=== PATIENT | male | born 1935 | race Caucasian/White ===

== ENCOUNTER 2016-10-12 10:37 | Inpatient (IN) | payer OTHER ==
--- NOTE | 2016-10-12 11:16 | EDPHY ---
HPI/HX/ROS/PE/MDM Narrative: CHIEF COMPLAINT:Left wrist injury HISTORY OF PRESENT ILLNESS: The patient is an 81 year old man presenting with acute left wrist injury, sustained two days ago. The patient was trying to lift something that was too heavy. The object slipped out of his hand and torqued his wrist. He took Oxycodone the day of the injury to manage the pain, but had difficulty managing the pain with Oxycodone yesterday. He had his wrist wrapped in an mathieu bandage yesterday. He complains of moderate pain in the volar ulnar and radial aspect of his wrist. It is associated with swelling and erythema, onset yesterday. Denies fever or chills. Patient does have a history of gout usually involving his toe. REVIEW OF SYSTEMS: Aside from elements discussed in the HPI, a comprehensive 10-point review of systems was reviewed and is negative. PAST MEDICAL HISTORY: Mantle cell lymphoma, COPD, gout SOCIAL HISTORY: Current daily smoker VITAL SIGNS: Reviewed by me GENERAL: Well-developed, well-nourished, resting comfortably in no respiratory distress. HEENT: Atraumatic. Eyes: No icterus, no injection. Mouth: moist mucous membranes. No erythema or lesions. Neck: supple with no adenopathy. LUNGS: Clear to auscultation bilaterally, no wheezes, rhonchi or rales. CARDIAC: Regular rate and rhythm, no rubs, murmurs or gallops. ABDOMEN: Soft, nontender, nondistended, bowel sounds normal. BACK: No CVA tenderness. EXTREMITIES: The left wrist is swollen, erythematous, and is slightly warm to the touch. The swelling involves the MCPs and dorsum of hand, as well as mild swelling on the volar aspect of the wrist. The erythema extends from the proximal phalanx to the distal radius. There is faint lymphangitis streaking on the volar aspect, extending up the forearm. Tenderness along the volar distal wrist. Pain with extension of the left thumb. Pain with range of motion of the left wrist, range of motion is diminished. NEURO: Alert and oriented, grossly nonfocal. SKIN: Warm and dry, no rash. PSYCHIATRIC: Normal mentation, no agitation. Portions of this note were transcribed by a medical art therapist. I personally performed a history, physical exam, medical decision making, and confirmed accuracy of information the transcribed note. ED Course: Left hand and wrist x-ray are negative for fracture. An IV has been established. CBC, CHEM, CRP, SED rate, lactic acid, and LFTs ordered. Elevated CRP, Creatinine 2.5 1300: Patient will be admitted for left wrist pain and cellulitis. I consulted with the hospitalist service and Dr. Wiley accepts admission. Rule out gout. Rule out deep space infection. I consulted with Dr. Marybeth Booth, hand surgery, who recommends MRI of the left wrist. Patient received a dose of ceftriaxone in the emergency department. MDM: 81-year-old male presenting with wrist sprain resulting in significant erythema , edema, warmth, and lymphangitic spread. Patient will be admitted to the hospital for treatment of cellulitis, as well as rule out an arthritic or infectious joint infection. MRI is pending at the time of admission. Dr Marybeth Booth is aware and will follow patient. Differential diagnosis for the patient's presenting complaint was considered including but not limited to contusion, fracture, open fracture, sprain, ligamentous tear, gouty arthritis, infectious arthritis, septic joint, cellulitis. - Data Points Laboratory Results: Laboratory Results 10/12/16 11:50 10/12/16 11:50 Medications Given: Discontinued Medications Sodium Chloride (Ns) 1,000 mls @ 0 mls/hr IV ONCE ONE PRN Reason: Wide Open Stop: 10/12/16 11:28 Last Admin: 10/12/16 11:53 Dose: 1,000 mls Ceftriaxone Sodium/Dextrose (Rocephin 1 Gm (Premix)) 50 mls @ 100 mls/hr IV EDNOW ONE PRN Reason: Protocol Stop: 10/12/16 13:17 Last Admin: 10/12/16 13:40 Dose: 50 mls General Time Seen by Provider: 10/12/16 11:15 Initial Vital Signs: Initial Vital Signs Temperature (C) 36.8 C 10/12/16 10:45 Heart Rate 95 10/12/16 10:45 Respiratory Rate 20 10/12/16 10:45 Blood Pressure 116/73 10/12/16 10:45 O2 Sat (%) 97 10/12/16 10:45 O2 Delivery Mode Nasal Cannula O2 (L/minute) 2 Allergies/Adverse Reactions: bupropion [From Wellbutrin] Allergy (Verified 10/12/16 11:01) niacin Allergy (Verified 10/12/16 11:01) Home Medications: Medication Instructions Recorded Aspirin [Aspirin 81mg (*)] 81 mg PO DAILY 10/12/16 Azelastine [Astelin Nasal [place] 2 sprays EACHNARE BID 10/12/16 (RX)] Clopidogrel Bisulfate [Clopidogrel] 75 mg PO HS 10/12/16 Furosemide [Lasix 20 MG (*)] 20 mg PO DAILY 10/12/16 Herbals/Supplements -Info Only 1 ea PO DAILY 10/12/16 Ipratropium 0.06% Nasal [Atrovent 2 sprays EACHNARE TID 10/12/16 0.06% Nasal (RX)] Lenalidomide [Revlimid] 5 mg PO HS 10/12/16 Mirtazapine [Remeron] 15 mg PO HS 10/12/16 Mometasone/Formoterol [Dulera 200 2 puffs IH BID 10/12/16 Mcg/5 Mcg Inhaler] Multivitamins [Multivitamin (*)] 1 each PO DAILY 10/12/16 Adel-3 Fatty Acids [Fish Oil 1000 1,000 mg PO DAILY 10/12/16 mg (*)] Pantoprazole Sodium [Protonix 40mg 40 mg PO DAILY 10/12/16 (*)] Sennosides 8.6 mg PO BID 10/12/16 Simvastatin [Zocor] 20 mg PO HS 10/12/16 Tiotropium [place] [Spiriva 2 inh IH DAILY 10/12/16 Respimat] clonazePAM [Klonopin (*)] 0.75 mg PO BID@09,16 10/12/16 traZODone [traZODONE 50MG (*)] 50 mg PO HS 10/12/16 Departure - Departure Disposition: [facility] Inpatient Acute Clinical Impression: Left wrist pain, Swelling of joint of left wrist Cellulitis Qualifiers: Site of cellulitis: extremity Site of cellulitis of extremity: upper extremity Laterality: left Qualified Code(s): L03.114 - Cellulitis of left upper limb Condition: Fair Report Scribed for: Rosy Zhu Report Scribed by: Shani Tee Date of Report: 10/12/16 Time of Report: 11:15
[2016-10-12] MEDS ORDERED: NS 1,000 ML IV ONE (11:27)
[2016-10-12 12:02] LABS: % IMMATURE GRANULYOCYTES 1.1 % (0.0-1.1); ABSOLUTE IMMATURE GRANULOCYTES 0.05 10^3/uL (0.00-0.10); ADD DIFF? NO; ADD MORPH? NO; ADD SCAN? YES; ATYPICAL LYMPHOCYTE FLAG 30 (0-99); FRAGMENT RBC FLAG 40 (0-99); HEMATOCRIT 39.3 % (40.0-51.0); HEMOGLOBIN 12.5 g/dL (13.7-17.5); LIPEMIA HEMOLYSIS FLAG 80 (0-99); MEAN CELL HEMOGLOBIN 24.9 pg (27.9-34.1); MEAN CELL HEMOGLOBIN CONCENTR. 31.8 g/dL (32.4-36.7); MEAN CELL VOLUME 78.3 fL (81.5-99.8); PLATELET CLUMPS FLAG 0 (0-99); PLATELET COUNT 143 10^3/uL (150-400); RED BLOOD CELL COUNT 5.02 10^6/uL (4.40-6.38); RED CELL DISTRIBUTION WIDTH 19.3 % (11.5-15.2)
[2016-10-12 12:15] LABS: LEFT SHIFT FLG 120 (0-99)
[2016-10-12 12:18] LABS: ALANINE AMINOTRANSFERASE 21 IU/L (21-72); ALBUMIN 3.8 g/dL (3.5-5.0); ALKALINE PHOSPHATASE 69 IU/L (38-126); ANION GAP 9 mEq/L (8-16); ASPARTATE AMINOTRANSFERASE 13 IU/L (17-59); BILIRUBIN,TOTAL 1.4 mg/dL (0.1-1.4); BILIRUBIN-CONJUGATED 0.4 mg/dL (0.0-0.5); C-REACTIVE PROTEIN 67.8 mg/L (<10.0); CARBON DIOXIDE 26 mEq/l (22-31); CHLORIDE 103 mEq/L (97-110); CREATININE 2.5 mg/dL (0.7-1.3); GLOMERULAR FILTRATION RATE 25; GLUCOSE 159 mg/dL (70-100); POTASSIUM 4.4 mEq/L (3.5-5.2); SODIUM 138 mEq/L (134-144); TOTAL PROTEIN 5.9 g/dL (6.3-8.2)
[2016-10-12 12:29] LABS: SEDIMENTATION RATE 8 MM/HR (0-20)
[2016-10-12 12:32] LABS: SCAN NEGATIVE
[2016-10-12] MEDS ORDERED: ONDANSETRON DISINTEGRATING 4 MG TAB PO PRN (12:58)
[2016-10-12] MEDS ORDERED: ACETAMINOPHEN 325 MG TAB PO PRN (12:58)
[2016-10-12] MEDS ORDERED: ONDANSETRON 4 MG/2 ML VIAL IVP PRN (12:58)
[2016-10-12] MEDS ORDERED: NS 1,000 ML IV SCH (13:00)
--- NOTE | 2016-10-12 14:13 | GHP ---
[f rep st] HISTORY AND PHYSICAL DATE OF ADMISSION: 10/12/2016 CHIEF COMPLAINT: Left wrist pain. HISTORY OF PRESENT ILLNESS: An 81-year-old male with multiple medical comorbidities, who reports mo ving a heavy piece of furniture the other day, and while he was lifting it twisted his wrist and rhonda pped the piece of furniture. Patient developed left-sided wrist pain after that twisting injury. P atient noted then, over the next 24 hours, that the wrist was more painful, more swollen. He began taking oxycodone narcotics left over from a previous procedure with little improvement in his discom fort, and then noted marked in the swelling over the subsequent 24 hours, prompting his presentation to the emergency department. Patient endorses some subjective fever and chills. Denies any vision changes, palpitations, dizziness, chest pain, worsening shortness of breath from his baseline;he ch ronically uses 2 L of oxygen, 3 with exertion. Denies any cough. Denies any nausea, vomiting, abdo sinai pain, changes in his bowel habits, dysuria, hematuria, or other joint complaints. PAST MEDICAL HISTORY: 1. 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 2. History of mantle cell lymphoma, status post chemotherapy. 3. Coronary artery disease status post 1-vessel bypass over 20 years ago. 4. CKD. 5. Anxiety. 6. Depression. 7. History of hypertension. SOCIAL HISTORY: Patient actively smokes 8-10 cigarettes a day. Has smoked heavily, with a 20-year cessation in between, and has been smoking consistently for the last 8. Denies any alcohol or illic it drugs. FAMILY HISTORY: Significant for breast cancer in his mother. ADVANCED DIRECTIVES: The patient wishes to be [id number]. His would be his medical de cision-maker. REVIEW OF SYSTEMS: A 10-point review of systems is negative with the exception of that reported in the HPI. PHYSICAL EXAMINATION: VITAL SIGNS: Blood pressure 116/73, heart rate 95, respiratory rate 20, satu rating 97% on 2 L . GENERAL this is a thin-appearing chronically ill-appearing male. LEONARDA NT: Notable for moist mucous membranes. Eye exam is negative for any icterus. CARDIAC: Patient i s regular rate and rhythm. A quiet systolic murmur is appreciated. PULMONARY: Patient has good res piratory effort. Clear to auscultation bilaterally. GASTROINTESTINAL: Positive bowel sounds. Abd omen soft and nontender in all 4 quadrants. MUSCULOSKELETAL: Patient has marked swelling of the le ft wrist and hand, with erythema extending from the wrist to the dorsum of the hand. The joint does feel warm to the touch. Patient is specifically tender palpating the wrist joint and has discomfor t with both passive and active range of motion of the wrist. Patient additionally has pain with pas sive movement of his 3rd digit; otherwise is able to move his fingers freely. Sensation is intact b eyond the wrist on the fingers. There is no streaking up the arm. No other joints are swollen or e rythematous. NEUROLOGIC: Patient is alert and oriented x3. PSYCHIATRIC: Pleasant and cooperative on interview and examination. DATA: White count 4.6, hematocrit 39.3, platelet count 143. Creatinine 2.5 recent baseline 2.3, BU N 48, sodium 138, CRP is 67. X-ray of the wrist, which I personally reviewed and interpreted, shows no acute fractures. X-ray of the hand, which I personally reviewed and interpreted, shows no acute fractures. ASSESSMENT AND PLAN: This is an 81-year-old male with multiple medical comorbidities, presenting wi th left wrist swelling and pain. 1. Acute arthropathy: Patient does have warmth and erythema on examination; certainly could includ e crystal arthropathy or septic arthropathy. Will obtain an MRI to rule out any fractures. Hand or thopedic surgery has been consulted and are aware. They will be looped back into the conversation a fter completion of the MRI for arthrocentesis and/or intervention if needed. Patient did receive em piric antibiotics in the emergency department for a septic joint. 2. Aztyx-mx-gwmomjz kidney disease; suspect likely hypovolemia. Will fluid resuscitate and recheck in the morning. 3. Chronic obstructive pulmonary disease, oxygen dependent: Will continue his home inhaled medicat ions and supplemental oxygen. 4. Coronary artery disease: Patient does not have chest pain at presentation. Will continue his h ome medications without change. 5. History of mantle cell lymphoma. Will continue his Revlimid. 6. Anxiety/depression: Will continue his home medications. 7. Prophylaxis with heparin subcu. Diet regular until an operative plan is clarified. DISPOSITION: I expect less than 2 midnights if imaging does not show concerning joint findings, and we can ascertain if the patient has a crystal arthropathy. I have discussed the case with the [facility] physician. Patient will be triaged to Med/Surg for observation. /[id number]/MODL
[2016-10-12] MEDS: HEPARIN 5,000 UNIT/0.5 ML SYR SC SCH ×2 (15:43→21:40)
[2016-10-12] MEDS: clonazePAM 0.5 MG TAB PO SCH (17:56)
[2016-10-12] MEDS: VANCOMYCIN HCL/NORMAL SALINE 250 ML IV SCH (17:56)
[2016-10-12] MEDS: IPRATROPIUM 0.06% NASAL SPRAY EACHNARE SCH ×2 (18:43→22:11)
[2016-10-12] MEDS ORDERED: NON-FORMULARY NEW DRUG (Mirtazapine [Remeron] 15 MG) PO SCH (21:00)
[2016-10-12] MEDS ORDERED: NON-FORMULARY NEW DRUG (Simvastatin [Zocor] 20 MG) PO SCH (21:00)
[2016-10-12] MEDS: Mometasone/Formoterol [Dulera 200 Mcg/5 Mcg Inhaler] 2 PUFFS IH SCH (21:23)
[2016-10-12] MEDS: SENNOSIDES 1 TAB PO SCH (21:40)
[2016-10-12] MEDS: traZODone 50 MG TAB PO SCH (21:40)
[2016-10-12] MEDS: MIRTAZAPINE 15 MG TAB PO SCH (21:40)
[2016-10-12] MEDS: ATORVASTATIN CALCIUM 10 MG TAB PO SCH (21:40)
[2016-10-12] MEDS: Lenalidomide [Revlimid] 5 MG PO SCH (21:41)
[2016-10-12] MEDS: AZELASTINE NASAL MDI EACHNARE SCH (22:09)
[2016-10-13] MEDS: HEPARIN 5,000 UNIT/0.5 ML SYR SC SCH ×3 (04:16→22:24)
[2016-10-13 05:35] LABS: ANION GAP 10 mEq/L (8-16); CALCIUM 8.4 mg/dL (8.5-10.4); CARBON DIOXIDE 20 mEq/l (22-31); CHLORIDE 109 mEq/L (97-110); CREATININE 2.3 mg/dL (0.7-1.3); GLOMERULAR FILTRATION RATE 27; GLUCOSE 86 mg/dL (70-100); POTASSIUM 4.6 mEq/L (3.5-5.2); SODIUM 139 mEq/L (134-144)
[2016-10-13] MEDS: clonazePAM 0.5 MG TAB PO SCH ×2 (07:40→16:14)
[2016-10-13] MEDS: MULTIVITAMINS 1 EACH TAB PO SCH (07:41)
[2016-10-13] MEDS: HYDROCODONE/APAP 5/325 TAB PO PRN ×3 (07:42→22:19)
[2016-10-13] MEDS: Tiotropium Bromide [Spiriva Respimat] 2 INH IH SCH (07:47)
[2016-10-13] MEDS: IPRATROPIUM 0.06% NASAL SPRAY EACHNARE SCH ×3 (07:50→22:20)
[2016-10-13] MEDS: AZELASTINE NASAL MDI EACHNARE SCH ×2 (07:52→16:15)
[2016-10-13] MEDS: PANTOPRAZOLE SODIUM 40 MG TAB PO SCH (07:57)
[2016-10-13] MEDS: SENNOSIDES 1 TAB PO SCH ×2 (07:57→20:45)
[2016-10-13] MEDS: OMEGA-3 FATTY ACIDS 1,000 MG CAP PO SCH (07:57)
[2016-10-13] MEDS: Mometasone/Formoterol [Dulera 200 Mcg/5 Mcg Inhaler] 2 PUFFS IH SCH ×2 (08:06→20:34)
[2016-10-13] MEDS ORDERED: Herbals/Supplements -Info Only PO SCH (09:00)
[2016-10-13] MEDS ORDERED: ASPIRIN 81 MG CHEWABLE TAB PO SCH (09:00)
[2016-10-13] MEDS ORDERED: BUPIVACAINE 0.5% 30 ML SDV ONE (11:37)
[2016-10-13] MEDS ORDERED: BUPIVACAINE/EPI 0.5% 30 ML SDV ONE (11:37)
--- NOTE | 2016-10-13 11:55 | GCON ---
[f rep st] CONSULTATION DATE OF CONSULTATION: 10/13/2016 CHIEF COMPLAINT: Left septic wrist arthritis. HISTORY OF PRESENT ILLNESS: 81-year-old male with a lot of medical problems, who on was mo ving a heavy piece of furniture, lifted a 40-pound bag and had some pain in his wrist. Developed wo rse pain that evening on Friday. He says pain was worse and then he presented to the ER with wrist pain, swelling, and erythema on Friday. He had been taking some narcotics, which were not effecti ve in relieving his pain. Denies any abrasion to the skin or violation of the skin. He was admitte d yesterday and the MRI was done. He was started on IV antibiotics. He says he has really not impr david. He does have a history of Dupuytren's disease. PAST MEDICAL HISTORY: Dupuytren's disease, COPD, history of mantle cell lymphoma and he is status p ost chemotherapy, coronary artery disease, 1-vessel bypass, chronic kidney disease, anxiety, depress ion, hypertension. SURGICAL HISTORY: Noncontributory. SOCIAL HISTORY: Smokes cigarettes. He drinks heavily. FAMILY HISTORY: Significant for breast cancer in his mother. REVIEW OF SYSTEMS: 10-point review of systems is negative except for what is in the HPI. PHYSICAL EXAMINATION: GENERAL: He is alert, oriented, and appropriate. He is in no acute distress . He is thin and ill appearing. VITAL SIGNS: Stable. HEENT: Head normocephalic, atraumatic. Hi s eyes are equal. His mouth shows moist mucous membranes. NECK: Supple. CARDIAC: His pulse is r egular rate and rhythm. PULMONARY: He has good respiratory effort. GI: His abdomen is soft. MUS CULOSKELETAL: Left upper extremity he has swelling and erythema about the left wrist more dorsally than palmarly. This does extend up into the dorsal portion of his hand. He has chronic flexion con tractures from his Dupuytren's of his small and ring finger. I can passively flex and extend his fi ngers with some pain at the wrist joint, as well as the stump. Passive extension of the wrist does cause some pain. Passive flexion of the wrist causes more pain. He is tender and there is quite a bit of fluid on the dorsum of his wrist more in the center and toward the radial side. The ulnar si de is less tender. He does have reported intact sensation in his fingers. His right upper extremit y is without abnormality with good neurovascular status and pain-free motion of his joints. His low er extremities show no acute abnormalities. RADIOLOGY: His x-rays are negative. His MRI shows fluid in the wrist joint and the DRUJ. There is also fluid around his extensor tendon sheaths 3rd and 4th compartment. LABORATORY DATA: His white count is normal at 4.5. His neutrophil count today is 60%. ASSESSMENT: Left septic wrist. PLAN: I discussed his condition and treatment options with him. I am concerned given his exam and his history of chemotherapy and lymphoma about his immunocompromised status. He does have fluid on his MRI and he is not improving from a cellulitic standpoint to the antibiotics. I discussed an asp iration of his wrist to evaluate further for septic arthritis. He consented to this and I performed this sterilely. I aspirated about 1 cc of what appeared to be holden pus out of his wrist. I will send this down for laboratory analysis, cell count, cultures, and Gram stain. Given the appearance of the fluid and holden pus in his wrist, I will plan on taking him to the opera ting room for an irrigation and debridement of the wrist, including the dorsal extensor compartments as well. I do not think we need to wait for the cell count and laboratory workup given the frankly purulent appearance of the aspirate. Informed consent was obtained. We will make arrangements for the operating room immediately. /[id number]/MODL
[2016-10-13] MEDS ORDERED: PROPOFOL/EMULSION 500 MG/50 ML BOTTLE IV ONE (11:58)
[2016-10-13] MEDS ORDERED: fentaNYL 100 MCG/2 ML INJ ONE (11:58)
[2016-10-13] MEDS ORDERED: LIDO/EPI 1% **Not for Epidural 20 ML MDV ONE (11:59)
[2016-10-13] MEDS ORDERED: LIDO/EPI 2% **for epidural** 20 ML SDV ONE (11:59)
[2016-10-13 12:39] LABS: WBC, SYNOVIAL FLUID 63602 /mm3 (0-150)
--- NOTE | 2016-10-13 12:40 | HOSPPROG ---
Hospitalist Progress Note Assessment/Plan: # acute septic arthropathy - patient remains swollen with painful active/ passive ROM- CRP> 60 MRI hand (personally reviewed and interpreted) with fluid and inflammatory changes Dr. Booth contacted from ER and did not perform arthrocentesis or review MRI images she requested - no response from her x 2 calls overnight - contacted construction or leak gang laborer ortho Dr. 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 Wang - he will evaluate the patient DELPHINE in abscess of available hand surgeon Subjective: pain unchanged Objective: Vital Signs Temp Pulse Resp BP Pulse Ox 37.0 C 105 H 16 122/88 H 88 L 10/13/16 07:21 10/13/16 07:21 10/13/16 07:21 10/13/16 07:21 10/13/16 07:21 Laboratory Results 10/13/16 04:20 10/12/16 10/13/16 10/14/16 05:59 05:59 05:59 Intake Total 1600 Output Total 300 Balance 1600 -300 - Physical Exam Constitutional: chronically ill appearing Eyes: anicteric sclera Ears, Nose, Mouth, Throat: moist mucous membranes Cardiovascular: regular rate and rhythym Respiratory: no respiratory distress, reduced air movement Gastrointestinal: normoactive bowel sounds, soft, non-tender abdomen Genitourinary: no bladder fullness Skin: warm, normal color Musculoskeletal: joint effusion, joint tenderness (left wrist), pain with ROM Neurologic: AAOx3 Psychiatric: interacting appropriately, not anxious Lymph, Heme, Immunologic: no cervical LAD ICD10 Worksheet Patient Problems: Problems Problem Status Onset Cellulitis Acute Left wrist pain Acute Swelling of joint of left wrist Acute
[2016-10-13] MEDS ORDERED: ONDANSETRON 4 MG/2 ML VIAL ONE (12:58)
[2016-10-13] MEDS ORDERED: ceFAZolin 1 GM VIAL ONE ×2 (12:58)
--- NOTE | 2016-10-13 13:07 | POSTOPPROG ---
Post Op Note Date of Operation: 10/13/16 Surgeon: Du Wang Noc Analyst: none Anesthesiologist: Estella Anesthesia: IV Sedation Pre-op Diagnosis: left septic srist Post-op Diagnosis: same Indication: above Procedure: I and D left wrist Findings: holden purulence Inf/Abcess present in the surg proc area at time of surgery?: Yes Depth: Deep Incisional (Fascial) EBL: Minimal Drains: Martin Westbrook
--- NOTE | 2016-10-13 14:10 | GOP ---
[f rep st] OPERATIVE REPORT DATE OF OPERATION: 10/13/2016 SURGEON: Du Wang MD COOLING TOWER TECHNICIAN: None ANESTHESIA: Sedation with an axillary block. PREOPERATIVE DIAGNOSIS: Left septic wrist arthritis. POSTOPERATIVE DIAGNOSIS: Left septic wrist arthritis. PROCEDURE PERFORMED: 1. Irrigation and debridement of left wrist septic arthritis. 2. Wrist arthrotomy. FINDINGS: SPECIMENS: Purulent fluid from left wrist for culture, Gram stain, AFB and fungal. ESTIMATED BLOOD LOSS: 5 mL. INDICATIONS: This is an 81-year-old gentleman who had been admitted to the hospital yesterday with concerns of infection. An MRI was done. He was admitted to the floor and stared on IV antibiotics. He did not improve overnight. I was called just a couple hours ago to evaluate him for the possib ility of a deeper infection, joint arthritis. I saw him on the floor and aspirated his wrist obtain ing holden purulence. I counseled him on the risks and benefits of immediate operative intervention to irrigate and debride his wrist given his infection. He would like to proceed. Informed consent was obtained. All questions were answered. He was marked preoperatively. Discussed the risks of w ound complications, nerve injury, need for repeat I and D, arthritis, dysfunction of his wrist, cont inued pain. DESCRIPTION OF PROCEDURE: He was taken to the operative suite, sterilely prepped and draped in norm al fashion. Block was performed per Anesthesia. A time-out was performed verifying the patient, si de, site, location and agreement with the team. The tourniquet was utilized but the limb was not exsanguinated. I made a dorsal incision over the w rist and dissected down to the extensor compartments. I isolated the EPL and protected this. I pul led the 4th compartment extensors radially. There was a small amount of fluid in the extensor concepcion rtments, no pus. I opened the wrist and there was immediate holden pus. I cultured this. I then ex posed the wrist and exposed both the midcarpal joint and the radiolunate scaphoid joint in the ulnar triquetral area. I thoroughly irrigated this with 3 L of saline. I worked it through the entire j oint, removing all the purulence. I inspected this again and found no more purulent material. A sm all amount of deep tissue and wrist capsule and small amount of bone were debrided as well. The drain was placed. He was closed with a 3-0 PDS with a couple layers in the capsule to keep the extensor tendons in the appropriate position and then 3-0 nylon in the skin. Placed a sterile dress ing and taken to PACU in stable condition. He will remain on IV antibiotics. We will get an infect ious disease consult. COMPLICATIONS: None. DRAINS: None. /[id number]/MODL
[2016-10-13] MEDS: ATORVASTATIN CALCIUM 10 MG TAB PO SCH (20:45)
[2016-10-13] MEDS: MIRTAZAPINE 15 MG TAB PO SCH (20:45)
[2016-10-13] MEDS: traZODone 50 MG TAB PO SCH (20:46)
[2016-10-13] MEDS: Lenalidomide [Revlimid] 5 MG PO SCH (20:49)
[2016-10-14] MEDS: HYDROCODONE/APAP 5/325 TAB PO PRN ×3 (04:21→21:31)
[2016-10-14 04:36] LABS: HEMATOCRIT 32.6 % (40.0-51.0); HEMOGLOBIN 10.3 g/dL (13.7-17.5); MEAN CELL HEMOGLOBIN 24.9 pg (27.9-34.1); MEAN CELL HEMOGLOBIN CONCENTR. 31.6 g/dL (32.4-36.7); MEAN CELL VOLUME 78.9 fL (81.5-99.8); RED BLOOD CELL COUNT 4.13 10^6/uL (4.40-6.38); RED CELL DISTRIBUTION WIDTH 18.6 % (11.5-15.2)
[2016-10-14 04:45] LABS: ANION GAP 6 mEq/L (8-16); CALCIUM 7.9 mg/dL (8.5-10.4); CARBON DIOXIDE 23 mEq/l (22-31); CHLORIDE 109 mEq/L (97-110); CREATININE 2.3 mg/dL (0.7-1.3); GLOMERULAR FILTRATION RATE 27; GLUCOSE 89 mg/dL (70-100); POTASSIUM 4.5 mEq/L (3.5-5.2); SODIUM 138 mEq/L (134-144)
[2016-10-14] MEDS: HEPARIN 5,000 UNIT/0.5 ML SYR SC SCH ×3 (05:49→21:25)
[2016-10-14] MEDS ORDERED: NS 500 ML IV ONE (08:17)
[2016-10-14] MEDS: MULTIVITAMINS 1 EACH TAB PO SCH (08:21)
[2016-10-14] MEDS: clonazePAM 0.5 MG TAB PO SCH ×2 (08:21→16:39)
[2016-10-14] MEDS: AZELASTINE NASAL MDI EACHNARE SCH ×2 (08:24→21:24)
[2016-10-14] MEDS: OMEGA-3 FATTY ACIDS 1,000 MG CAP PO SCH (08:26)
[2016-10-14] MEDS: SENNOSIDES 1 TAB PO SCH ×2 (08:26→21:21)
[2016-10-14] MEDS: PANTOPRAZOLE SODIUM 40 MG TAB PO SCH (08:27)
[2016-10-14] MEDS: IPRATROPIUM 0.06% NASAL SPRAY EACHNARE SCH ×3 (08:28→21:13)
[2016-10-14] MEDS: Tiotropium Bromide [Spiriva Respimat] 2 INH IH SCH (08:29)
[2016-10-14] MEDS: Mometasone/Formoterol [Dulera 200 Mcg/5 Mcg Inhaler] 2 PUFFS IH SCH ×2 (08:32→21:12)
--- NOTE | 2016-10-14 08:36 | SOAPPROG ---
SOAP Progress Note Assessment/Plan: Assessment: status post left wrist I&D 10/13 Plan: holden purulence found during surgery. cultures are still pending. I pulled his drain today. Placed infectious disease consult. Once final antibiotic recommendations have been He will follow up with me on Fri for wound check he has my card to make an appointm 10/14/16 08:34 Subjective: some improvement in his pain. Objective: Vital Signs Temp Pulse Resp BP Pulse Ox 37.2 C 85 16 95/81 H 93 10/14/16 07:25 10/14/16 07:25 10/14/16 07:25 10/14/16 07:25 10/14/16 07:25 Laboratory Results 10/14/16 04:21 10/14/16 04:21 10/13/16 10/14/16 10/15/16 05:59 05:59 05:59 Intake Total 1650 Output Total 5 Balance 1645 dressing clean dry and intact. He can flex and extend his fingers better than he could yesterday. His sensation is intact ICD10 Worksheet Patient Problems: Problems Problem Status Onset Cellulitis Acute Left wrist pain Acute Swelling of joint of left wrist Acute
--- NOTE | 2016-10-14 10:34 | SOAPPROG ---
SOAP Progress Note Assessment/Plan: Assessment: S/P I/D left wrist under regional anesthesia (axillary block) with propofol sedation while on plavix and heparin. No apparent bleeding sequelae. Doing well. No overt systemic infection. Plan: Continue routine post-op cares. 10/14/16 10:32 10/14/16 10:33 Subjective: Patient seen and examined on the floor. Doing well. Pain rated at a 5-6/10. Block has worn off with full ROM of left distal upper extremity. No complaints of Nausea or residual numbness/tingling. Objective: Vital Signs Temp Pulse Resp BP Pulse Ox 37.2 C 85 16 95/81 H 93 10/14/16 07:25 10/14/16 07:25 10/14/16 07:25 10/14/16 07:25 10/14/16 07:25 Laboratory Results 10/14/16 04:21 10/14/16 04:21 10/13/16 10/14/16 10/15/16 05:59 05:59 05:59 Intake Total 1650 Output Total 5 Balance 1645 ICD10 Worksheet Patient Problems: Problems Problem Status Onset Cellulitis Acute Left wrist pain Acute Swelling of joint of left wrist Acute
--- NOTE | 2016-10-14 13:08 | HOSPPROG ---
Hospitalist Progress Note Assessment/Plan: # acute septic arthropathy - s/p washout 10/13/16 patient remains swollen with painful active/passive ROM- MRI hand - with fluid and inflammatory changes - wrist xray (personally reviewed and interpreted) without fractures joint fluid Cx and Bcx - NGTD - ID consulted - continue empiric abx with vancomycin and ceftriaxone - cont prn pain meds - adding crystal analysis to joint fluid # STEFANO on CKD- creatinine 2.5-> 2.3 this am with IVF from admit - cont hold lasix - recheck in am # COPD - chronic - no new changes- oxygen saturations 93% on 3.5L - continue home inhalers # CAD - no chest pain - cont home meds # proph - heparin SQ 2/ CKD # diet - cardiac # dispo-> 2MN as patient requiring ongoing IV abx treatment I have discussed the case with Dr. Red - he will consult and make recs on antibiotics going forward Subjective: still very painful Objective: Vital Signs Temp Pulse Resp BP Pulse Ox 37.4 C 103 H 16 97/74 L 93 10/14/16 11:41 10/14/16 11:41 10/14/16 11:41 10/14/16 11:41 10/14/16 11:41 Laboratory Results 10/14/16 04:21 10/14/16 04:21 10/13/16 10/14/16 10/15/16 05:59 05:59 05:59 Intake Total 1650 Output Total 5 Balance 1645 - Physical Exam Constitutional: chronically ill appearing Eyes: anicteric sclera Ears, Nose, Mouth, Throat: moist mucous membranes Cardiovascular: regular rate and rhythym, systolic murmur Respiratory: no respiratory distress Gastrointestinal: normoactive bowel sounds, soft, non-tender abdomen Genitourinary: no bladder fullness Skin: warm, normal color Musculoskeletal: other (left wrist splinted), No asymmetric calves Neurologic: AAOx3 Psychiatric: interacting appropriately, not anxious Lymph, Heme, Immunologic: no cervical LAD ICD10 Worksheet Patient Problems: Problems Problem Status Onset Cellulitis Acute Left wrist pain Acute Swelling of joint of left wrist Acute
[2016-10-14] MEDS: VANCOMYCIN HCL/NORMAL SALINE 250 ML IV SCH (16:39)
[2016-10-14] MEDS: predniSONE 20 MG TAB PO SCH (16:47)
[2016-10-14] MEDS ORDERED: Lenalidomide [Revlimid] 5 MG PO SCH (21:00)
[2016-10-14] MEDS ORDERED: ASPIRIN 81 MG CHEWABLE TAB PO SCH (21:00)
[2016-10-14] MEDS: MIRTAZAPINE 15 MG TAB PO SCH (21:22)
[2016-10-14] MEDS: traZODone 50 MG TAB PO SCH (21:22)
[2016-10-14] MEDS: ATORVASTATIN CALCIUM 10 MG TAB PO SCH (21:22)
[2016-10-15] MEDS ORDERED: CALCIUM CARBONATE 500 MG CHEWABLE TAB PO PRN (00:25)
--- NOTE | 2016-10-15 00:25 | GCON ---
[f rep st] CONSULTATION INFECTIOUS DISEASE CONSULTATION DATE OF CONSULTATION: 10/14/2016 REFERRING PHYSICIAN: Du Wang MD REASON FOR CONSULTATION: Left wrist septic arthritis. HISTORY OF PRESENT ILLNESS: The patient is an 81-year-old male with a past medical history of mantl e cell lymphoma, on maintenance therapy with Revlimid, who I am asked to see in consultation for lef t wrist septic arthritis. Two days prior to admission, patient describes lifting a 40-pound bag of fertilizer, which he ultimately dropped, and felt a twisting sensation in his wrist. Over the ensui ng 2 days, he developed progressive pain, swelling, and redness over the wrist and forearm. He stat es he could not lift his arm. The pain and swelling in his hand progressed such that he could not m cortney a fist. He describes having subjective fever and chills. Based on those findings, he was seen for further evaluation at [facility]. Ultimately, he had a wrist arthrocentesis perfo rmed, which showed 63,602 white blood cells, with 96% neutrophils. This was purulent in appearance grossly. Based on those findings, he underwent incision and drainage of the wrist yesterday. Gram stain from both specimens shows no organisms, with cultures currently no growth to date. The patien t has been receiving empiric treatment with vancomycin and ceftriaxone. He does not note any pain i n any other joints. He has not had any recent travel. There is no animal exposure. No sexual risk for gonorrhea. No prior history of gout or pseudogout. Based on the above findings, I am now aske d to assist in his ongoing management. PAST MEDICAL HISTORY: Mantle cell lymphoma, COPD, congestive heart failure, coronary artery disease , chronic kidney disease, hypertension. PAST SURGICAL HISTORY: Incision and drainage as above; history and physical notes one-vessel bypass , although he does not relate this today. CURRENT MEDICATIONS: Vancomycin 1 g IV q.48 hours, ceftriaxone 1 g IV q.24 hours, aspirin 81 mg p.o . daily, Lipitor 10 mg p.o. at bedtime, Astelin 2 sprays each naris twice daily, Klonopin 0.75 mg p. o. twice daily, heparin 5000 units subcutaneous q.8 hours, Atrovent 2 sprays each naris three times daily, Remeron 15 mg p.o. at bedtime, Dulera inhaler 2 puffs twice daily, Spiriva inhaler 2 puffs da arnav, Revlimid 5 mg p.o. daily x21 days, then 7 days off, multivitamin p.o. daily, fish oil 1000 mg p .o. daily, Protonix 40 mg p.o. daily, trazodone 50 mg p.o. at bedtime. ALLERGIES: The patient notes no drug allergies, although his medical record notes bupropion and earl tin. SOCIAL HISTORY: Patient smokes 7-8 cigarettes daily. No alcohol or drug use. No recent travel or animal exposure. FAMILY HISTORY: Mother with breast cancer, father with stroke. REVIEW OF SYSTEMS: Outside that noted in the HPI, the remainder of a 10-system review is unremarkab le, except for fatigue. No recent dental problems or dental work. PHYSICAL EXAMINATION: VITAL SIGNS: Temperature maximum 37.7, temperature current 37.4, heart rate 103, respiratory rate 16, blood pressure 97/74, oxygen saturation 93% on 3.5 L. GENERAL: Patient i s well nourished, well developed, in no acute distress. He appears nontoxic. HEENT: There is no s cleral icterus, conjunctival injection, or conjunctival petechiae. The dentition is in poor repair. Mucous membranes are dry. There is no nasal discharge. There is no tenderness over the sinuses. NECK: Supple without lymphadenopathy or palpable thyromegaly. CHEST: Clear to auscultation bilat erally without adventitious sounds. Respiratory effort is normal. There is frequent dry cough pres ent. CARDIOVASCULAR: Regular rate and rhythm without murmurs, gallops, or rubs. ABDOMEN: Soft, n ontender, nondistended. There is no palpable organomegaly. Bowel sounds are present. MUSCULOSKELE LIZETH: Left wrist is dressed postoperatively; portion of the hand that is visible shows overlying brianne thema and edema, with the edema extending into the digits and forearm; patient is able to move his d igits, but range of motion is limited. There is warmth in the forearm without overlying erythema. LYMPHATICS: There are no cervical or supraclavicular nodes. There is no left upper extremity lymph angitis. SKIN: See musculoskeletal exam; there are no stigmata of endocarditis. The skin is warm and dry to touch. NEUROLOGIC: Patient is alert and interacts appropriately with the examiner. 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 Muscle tone and bulk are normal. LABORATORY DATA: White blood cell count 3.3, hematocrit 32.6, platelets 119; differential on 2016 showed 63% neutrophils; creatinine 2.3, C-reactive protein, 67.8, albumin 3.8, ESR 8. Synovial fluid showing 63,602 white blood cells, 146,347 red blood cells, 96% neutrophils. No malignant kyler ls noted. Blood cultures with 1 of 2 sets showing growth of coagulase-negative staph in 1 of 4 govind les. Gram stain of both wrist specimens is negative, with culture currently pending. Plain film of the wrist shows mild chondrocalcinosis. MRI of the wrist shows no evidence of osteomyelitis. There is fluid within the joint space. IMPRESSION: 1. Inflammatory arthropathy of the left wrist: Most likely, this represents septic arthritis, give n underlying immunosuppression. Gram stain is negative, with culture showing no organisms to date, although this was obtained after antibiotics were initiated. Most likely, this would be related to gram-positive bhumika such as Staphylococcus aureus or beta-hemolytic streptococci. Given his poor de ntition, seeding from an oropharyngeal source would also be of consideration. Crystalline arthropat hy is also in the differential diagnosis, and with presence of chondrocalcinosis, this could be rela tigre to pseudogout. 2. Positive blood culture: One of 4 bottles positive for coagulase-negative staphylococcus consist ent with contamination. I do not think this is etiology for patient's inflammatory arthropathy. RECOMMENDATIONS: 1. We will send synovial fluid for crystal analysis. 2. Continue vancomycin 1 g IV q.48 hours. Will assess vancomycin level today prior dosing to ensur e does not have excessive level. 3. Discontinue ceftriaxone pending further culture data. 4. Further decision making and treatment plan based on above findings as available. Thank you for this consultation. We will continue to follow the patient with you. /[id number]/MODL
--- NOTE | 2016-10-15 03:04 | CPEKG ---
Heart Rate: 48 RR Interval: 1250 P-R Interval: 168 QRSD Interval: 104 QT Interval: 456 QTC Interval: 408 P [place]: 44 QRS [place]: -41 T Wave [place]: 37 EKG Severity - ABNORMAL ECG - EKG Impression: SINUS RHYTHM EKG Impression: VENTRICULAR TRIGEMINY EKG Impression: LEFT AXIS DEVIATION EKG Impression: PROBABLE ANTEROSEPTAL INFARCT, AGE INDETERM Electronically Signed By: Sandor Salvador 15-Oct-2016 06:37:33
[2016-10-15 04:08] LABS: HEMOGLOBIN 10.3 g/dL (13.7-17.5); MEAN CELL HEMOGLOBIN 25.3 pg (27.9-34.1); MEAN CELL HEMOGLOBIN CONCENTR. 31.2 g/dL (32.4-36.7); MEAN CELL VOLUME 81.1 fL (81.5-99.8); RED BLOOD CELL COUNT 4.07 10^6/uL (4.40-6.38); RED CELL DISTRIBUTION WIDTH 18.7 % (11.5-15.2)
[2016-10-15 04:31] LABS: ANION GAP 8 mEq/L (8-16); CALCIUM 8.5 mg/dL (8.5-10.4); CARBON DIOXIDE 22 mEq/l (22-31); CHLORIDE 108 mEq/L (97-110); CREATININE 2.2 mg/dL (0.7-1.3); GLOMERULAR FILTRATION RATE 29; GLUCOSE 144 mg/dL (70-100); MAGNESIUM 1.9 mg/dL (1.6-2.3); POTASSIUM 5.2 mEq/L (3.5-5.2); SODIUM 138 mEq/L (134-144)
[2016-10-15] MEDS: HEPARIN 5,000 UNIT/0.5 ML SYR SC SCH (06:39)
[2016-10-15 07:44] VITALS: RESP 15
[2016-10-15] MEDS: SENNOSIDES 1 TAB PO SCH (08:24)
[2016-10-15] MEDS: predniSONE 20 MG TAB PO SCH (08:24)
[2016-10-15] MEDS: OMEGA-3 FATTY ACIDS 1,000 MG CAP PO SCH (08:24)
[2016-10-15] MEDS: clonazePAM 0.5 MG TAB PO SCH (08:24)
[2016-10-15] MEDS: AZELASTINE NASAL MDI EACHNARE SCH (08:25)
[2016-10-15] MEDS: MULTIVITAMINS 1 EACH TAB PO SCH (08:25)
[2016-10-15] MEDS: PANTOPRAZOLE SODIUM 40 MG TAB PO SCH (08:25)
[2016-10-15] MEDS: Mometasone/Formoterol [Dulera 200 Mcg/5 Mcg Inhaler] 2 PUFFS IH SCH (08:26)
[2016-10-15] MEDS: IPRATROPIUM 0.06% NASAL SPRAY EACHNARE SCH (08:26)
[2016-10-15] MEDS: Tiotropium Bromide [Spiriva Respimat] 2 INH IH SCH (08:26)
[2016-10-15 11:44] VITALS: BP 98/56; PULSE 92; TEMP 97.7; O2SAT 95
--- NOTE | 2016-10-15 12:02 | SOAPPROG ---
SOAP Progress Note Assessment/Plan: Assessment: status post left wrist I&D 10/13 Plan: holden purulence found during surgery. cultures are still pending but negative so far Placed infectious disease consult. Once final antibiotic recommendations have been He will follow up with me on Fri for wound check he has my card to make an appointment 10/14/16 08:34 10/15/16 12:02 Subjective: less pain Objective: Vital Signs Temp Pulse Resp BP Pulse Ox 36.5 C 92 15 98/56 L 95 10/15/16 11:44 10/15/16 11:44 10/15/16 11:44 10/15/16 11:44 10/15/16 11:44 Laboratory Results 10/15/16 03:50 10/15/16 03:50 10/14/16 10/15/16 10/16/16 05:59 05:59 05:59 Intake Total 1650 1200 Output Total 5 Balance 1645 1200 incision dry ICD10 Worksheet Patient Problems: Problems Problem Status Onset Cellulitis Acute Left wrist pain Acute Swelling of joint of left wrist Acute
--- NOTE | 2016-10-15 12:20 | HOSPPROG ---
Hospitalist Progress Note Assessment/Plan: # acute septic arthropathy - vs crystalline - s/p washout 10/13/16 - swelling and pain improved overnight MRI hand - with fluid and inflammatory changes - hand xray (personally reviewed and interpreted) without fractures joint fluid Cx and Bcx - NGTD - started prednisone yesterday 2/2 calcium pyrophosphate crystals in joint fluid - continue IV vancomycin - discuss PO options with ID - cont prn pain meds # Coag negative staph bacteremia - 06/26 bottles - suspected contaminant # STEFANO on CKD- creatinine 2.5-> 2.2 this am with IVF from admit - cont to hold lasix - recheck in am # COPD - chronic - no new changes- oxygen saturations 95% on 5L - continue home inhalers # CAD - no chest pain - cont home meds # proph - heparin SQ / CKD # diet - cardiac # dispo-> 2MN as patient requiring ongoing IV abx treatment I have discussed the case with Dr. Red - agrees with steroids - antibiotic endpoint will be difficult as synovial cx are from after Abx Subjective: pain and mobility improved this am Objective: Vital Signs Temp Pulse Resp BP Pulse Ox 36.5 C 92 15 98/56 L 95 10/15/16 11:44 10/15/16 11:44 10/15/16 11:44 10/15/16 11:44 10/15/16 11:44 Laboratory Results 10/15/16 03:50 10/15/16 03:50 10/14/16 10/15/16 10/16/16 05:59 05:59 05:59 Intake Total 1650 1200 Output Total 5 Balance 1645 1200 ICD10 Worksheet Patient Problems: Problems Problem Status Onset Cellulitis Acute Left wrist pain Acute Swelling of joint of left wrist Acute
--- NOTE | 2016-10-15 14:53 | PCMIDPN ---
Assessment/Plan: Assessment/Plan: * Left wrist inflammatory arthropathy: Synovial fluid analysis shows many CPPD crystals. Cultures remain negative noting that were obtained after antibiotics provided. Suspect clinical findings most likely all due to pseudogout. He has been started on prednisone with clinical improvement in wrist inflammation. Will discontinue vancomycin and observe off antibiotics. Will follow up cultures over time. Follow-up in my office on 10/17/2016 for repeat assessment. * Positive blood culture: 1/2 sets positive for coagulase-negative Staphylococcus consistent with contamination. Findings and plan discussed with patient and . 10/15/16 14:50 Subjective: Synovial fluid showed many CPPD crystals. Patient started on prednisone with clinical improvement in wrist pain. Objective: Vital Signs Temp Pulse Resp BP Pulse Ox 36.5 C 92 15 98/56 L 95 10/15/16 11:44 10/15/16 11:44 10/15/16 11:44 10/15/16 11:44 10/15/16 11:44 Laboratory Results 10/15/16 03:50 10/15/16 03:50 10/14/16 10/15/16 10/16/16 05:59 05:59 05:59 Intake Total 1650 1200 Output Total 5 Balance 1645 1200 ESR 8 MM/HR (0-20) 10/12/16 11:50 C-Reactive Protein 67.8 mg/L (<10.0) H 10/12/16 11:50 Vancomycin # 3 Synovial cultures no growth Synovial fluid with many CPPD crystals Blood cultures 1/2 sets coagulase-negative Staphylococcus - Physical Exam General Appearance: alert, no apparent distress Extremities: inflammation (Left wrist with residual edema, warmth and tenderness with range of motion; small amount of overlying erythema; edema extends into digits but improved range of motion of digits; no erythema over forearm) Lymphatic: other (No left upper extremity lymphangitis) ICD10 Worksheet Patient Problems: Problems Problem Status Onset Cellulitis Acute Left wrist pain Acute Swelling of joint of left wrist Acute
--- NOTE | 2016-10-15 15:41 | GDS ---
[f rep st] DISCHARGE SUMMARY DISCHARGE DIAGNOSES: Include. 1. Acute arthropathy thought secondary to pseudogout. 2. Chronic hypoxic respiratory failure secondary to COPD. 3. Acute kidney injury on chronic kidney disease. 4. Coronary artery disease. HISTORY OF PRESENT ILLNESS: An 81-year-old male who presents with acute onset left wrist pain. For details of patient's initial presentation, please see the history and physical dated 10/12/2016. CONSULTATIVE SERVICES: Include. 1. Orthopedic Surgery, Dr. Wang. 2. Infectious Disease. PROCEDURES: On 10/13/2016, patient underwent arthrocentesis and left wrist washout. HOSPITAL COURSE: By issue. 1. Acute arthropathy concerning for septic joint. Patient presented with acute onset pain, swollen red joint, was admitted for concerns of possible septic joint. Orthopedic Surgery evaluated and on arthrocentesis pulled out holden pus. Patient was taken into the operating room for washout. Synov ial fluid analysis was performed after the initiation of antibiotics but has grown no pathogens sinc e obtaining fluid. We did find numerous calcium pyrophosphate crystals consistent with pseudogout. The patient received antibiotics from his initial evaluation in the emergency department. Infectio us Disease has been following with negative cultures and positive crystal analysis. I think it is m ost likely that the arthropathy is pseudogout in nature. We are discontinuing antibiotics at this t dmitry. The patient is being treated with prednisone with good response in his symptomatology. Will h ave the patient follow up postoperatively with Dr. Wang on 10/18/2016 as well as with his PCP nicolas y the first week of October for followup. He is being provided with 7 days of oral prednisone to be re- evaluated by his PCP for continuation at that point based on symptom response. The patient is addit ionally receiving a low-dose oxycodone p.r.n. for pain as he responds to prednisone therapy. 2. COPD. Patient is at his baseline oxygen saturations. Will continue his home medications. 3. Coronary artery disease. Patient did not have chest pain complaints and was continued on his ca rdiac medications. 4. Acute kidney on chronic kidney disease. Patient appeared to have hypovolemia presentation. His creatinine improved from 2.5 to 2.2 with fluid resuscitation. We are holding Lasix at disposition for the patient to resume after evaluation by his PCP next week. MEDICATIONS: At the time of disposition, please reference medication reconciliation printed on 09/22. Of note, 2 prescriptions were E-scribed to the patient's pharmacy, 1 for prednisone and 1 f or oxycodone. PENDING STUDIES: At the time of this dictation include blood cultures drawn 10/12/2016, as well as synovial fluid analysis from 10/13/2016. Infectious Disease will be following these cultures post d isposition. TIME SPENT: I spent greater than 30 minutes in the planning and coordination of this discharge. /[id number]/MODL
[2016-10-15] MEDS ORDERED: CLOPIDOGREL BISULFATE 75 MG TAB PO SCH (21:00)
[2016-10-16 19:51] LABS: IMMUNOGLOBULIN A 29 mg/dL (61 - 356); IMMUNOGLOBULIN G 410 mg/dL (767 - 1590); IMMUNOGLOBULIN M 16 mg/dL (37 - 286)
== END 2016-10-15 15:05 | disposition home or self-care (01) | DRG 513 ==
LOC: F3N 14:01 → OBSVTOIN 10-13 12:48 → F3N 10-14 18:06
PROVIDERS: ADMIT Hospitalist; ATTEND Hospitalist
PROC: 0RBP0ZZ Excision of Left Wrist Joint, Open Approach (ICD-10-PCS; principal; 2016-10-13 13:04)
DX: M11.832 Other specified crystal arthropathies, left wrist (principal); J96.11 Chronic respiratory failure with hypoxia; N17.9 Acute kidney failure, unspecified; J44.9 Chronic obstructive pulmonary disease, unspecified; I12.9 Hypertensive chronic kidney disease with stage 1 through stage 4 chronic kidney disease, or unspecified chronic kidney disease; N18.9 Chronic kidney disease, unspecified; I25.10 Atherosclerotic heart disease of native coronary artery without angina pectoris; M10.9 Gout, unspecified; E86.1 Hypovolemia; K21.9 Gastro-esophageal reflux disease without esophagitis; Z85.72 Personal history of non-Hodgkin lymphomas; Z95.1 Presence of aortocoronary bypass graft; Z99.81 Dependence on supplemental oxygen; Z72.0 Tobacco use
CPT/HCPCS: 82784-90; G0378; J0690; J0696; J2405; J2704; J3010; J3370